=== PATIENT | female | born 1975 | race Caucasian/White ===

== ENCOUNTER 2016-09-10 15:38 | Emergency (ER) | payer BC ==
[~2016-09-10] VITALS: Ht 167.6 cm; Wt 98.0 kg
[~2016-09-10 15:38] MED LIST: EFFEXOR75 MG PO; NORCO1 TA1 PO
[2016-09-10] MEDS ORDERED: VENLAFAXINE HCL75 M1 PO (15:49)
[2016-09-10] MEDS ORDERED: TRAMADOL HYDROC50 MG PO (16:56)
[2016-09-10] MEDS ORDERED: EC-NAPROSYN500 MG PO (16:56)
[2016-09-10 17:00] VITALS: BP 149/74
== END 2016-09-10 17:00 | disposition home or self-care (01) | DRG 159 ==
LOC: ED 15:38
DX: M26.601 Right temporomandibular joint disorder, unspecified (principal); F17.200 Nicotine dependence, unspecified, uncomplicated; H92.01 Otalgia, right ear

== ENCOUNTER 2017-11-02 18:18 | Emergency (ER) | payer BC ==
[~2017-11-02] VITALS: Ht 167.6 cm; Wt 122.0 kg
[~2017-11-02 18:18] MED LIST changes: +EC-NAPROSYN500 MG PO; +TRAMADOL HYDROC50 MG PO; +VENLAFAXINE HCL75 M1 PO
[2017-11-02 19:20] VITALS: BP 175/77
== END 2017-11-02 19:20 | disposition home or self-care (01) | DRG 563 ==
LOC: ED 18:18
DX: S96.912A Strain of unspecified muscle and tendon at ankle and foot level, left foot, initial encounter (principal); F17.210 Nicotine dependence, cigarettes, uncomplicated; F41.9 Anxiety disorder, unspecified; X50.3XXA Overexertion from repetitive movements, initial encounter

== ENCOUNTER 2022-03-04 14:52 | Emergency (ER) | payer BC ==
[~2022-03-04] VITALS: Ht 167.6 cm; Wt 136.0 kg
[2022-03-04 15:12] VITALS: BP 151/87
[2022-03-04 15:16] VITALS: BP 152/83
[2022-03-04] MEDS ORDERED: PREDNISONE50 MG PO (17:41)
[2022-03-04] MEDS ORDERED: ALL DAY10 MG PO (17:41)
[2022-03-04] MEDS ORDERED: EPIPEN 2-P0.3 MG/0.3 IM (17:42)
[2022-03-04 19:26] VITALS: BP 152/83
== END 2022-03-04 19:37 | disposition home or self-care (01) | DRG 916 ==
LOC: ED 14:52
DX: T78.40XA Allergy, unspecified, initial encounter (principal); F41.9 Anxiety disorder, unspecified; F17.200 Nicotine dependence, unspecified, uncomplicated; X58.XXXA Exposure to other specified factors, initial encounter

== ENCOUNTER 2022-05-07 19:11 | Emergency (ER) | payer BC ==
[~2022-05-07] VITALS: Ht 167.6 cm; Wt 125.0 kg
[~2022-05-07 19:11] MED LIST changes: +ALL DAY10 MG PO; +EPIPEN 2-P0.3 MG/0.3 IM; +PREDNISONE50 MG PO
[2022-05-07 20:16] VITALS: BP 141/83
[2022-05-07 21:04] LABS: URINE BILIRUBIN - DIPSTICK NEGATIVE (NEGATIVE); URINE BLOOD DIPSTICK TRACE-INTACT (NEGATIVE); URINE COLOR YELLOW; URINE GLUCOSE - DIPSTICK 100 mg/dL (NEGATIVE); URINE KETONE NEGATIVE (NEGATIVE); URINE LEUK ESTERASE NEGATIVE (NEGATIVE); URINE PH 5.5 (4.5-8.0); URINE PROTEIN - DIPSTICK TRACE mg/dL (NEG-TRACE); URINE SPECIFIC GRAVITY >=1.030
[2022-05-07 21:05] LABS: HEMATOCRIT 42.4 % (37.0-47.0); IMMATURE GRANULOCYTES 0.1 % (0.0-5.0); NEUT# 6.75 thou/uL (2.00-7.15); RED BLOOD COUNT 4.66 mill/uL (4.20-5.60); RED CELL DISTRI WIDTH 12.3 % (11.5-15.5)
[2022-05-07 21:06] LABS: URINE NITRITE - DIPSTICK POSITIVE (Negative)
[2022-05-07 21:14] LABS: URINE BACTERIA RARE hpf; URINE RBC 0-2 RBC/hpf (0-5); URINE SQUAMOUS EPITHELIAL CELL FEW EPI/hpf (0-FEW); URINE WBC 0-2 WBC/hpf (0-5)
[2022-05-07 21:18] LABS: ALBUMIN 4.1 g/dL (3.2-5.0); ALKALINE PHOSPHATASE 57 u/l (38-126); AMYLASE 52 u/l (30-110); ANION GAP 13 (6-22 (CALC)); BUN 8 mg/dL (7-17); BUN/CREATININE RATIO 11 (12-20 (CALC)); CARBON DIOXIDE 25 mmol/l (22-30); CHLORIDE 102 mmol/l (95-108); CREATININE 0.7 mg/dL (0.5-1.0); GFR FOR AFR.AMER. > 60 ML/MIN (>=60 (CALC)); GFR OTHER RACES > 60 ML/MIN (>=60 (CALC)); LIPASE 47 u/l (23-300); POTASSIUM 3.7 mmol/l (3.5-5.1); SGOT/AST 23 u/l (14-36); SODIUM 136 mmol/l (137-146); TOTAL PROTEIN 7.5 g/dL (6.3-8.2)
[2022-05-07 21:22] LABS: BILIRUBIN, TOTAL 0.6 mg/dL (0.0-1.4)
[2022-05-07] MEDS ORDERED: CIPROFLOXACN500 MG PO (23:37)
[2022-05-07] MEDS ORDERED: METRONIDAZOLE500 MG PO (23:37)
[2022-05-07 23:42] VITALS: BP 141/83
== END 2022-05-07 23:46 | disposition home or self-care (01) | DRG 392 ==
LOC: ED 19:11
PROVIDERS: Emergency Medicine
DX: K57.32 Diverticulitis of large intestine without perforation or abscess without bleeding (principal); F41.9 Anxiety disorder, unspecified

== ENCOUNTER 2023-06-18 08:48 | Emergency (ER) | payer BC ==
[~2023-06-18] VITALS: Ht 167.6 cm; Wt 126.4 kg
[2023-06-18] VITALS (7 sets, daily range): BP systolic 142–172; BP diastolic 90–113
[~2023-06-18 08:48] MED LIST changes: +CIPROFLOXACN500 MG PO; +METRONIDAZOLE500 MG PO
[2023-06-18 10:21] LABS: URINE BILIRUBIN - DIPSTICK Negative (NEGATIVE); URINE BLOOD DIPSTICK Negative (NEGATIVE); URINE GLUCOSE - DIPSTICK Negative (NEGATIVE); URINE KETONE Negative (NEGATIVE); URINE LEUK ESTERASE Negative (NEGATIVE); URINE NITRITE - DIPSTICK Negative (Negative); URINE PH 6.5 (4.5-8.0); URINE PROTEIN - DIPSTICK Negative (NEG-TRACE); URINE UROBILINOGEN - DIPSTICK 0.2 E.U./dL (0.2)
[2023-06-18 10:22] LABS: URINE COLOR Yellow
[2023-06-18] MEDS ORDERED: OMNICEF300 MG PO (10:44)
== END 2023-06-18 10:52 | disposition home or self-care (01) | DRG 153 ==
LOC: ED 08:48
PROVIDERS: Emergency Medicine
DX: H66.91 Otitis media, unspecified, right ear (principal); M54.9 Dorsalgia, unspecified; F41.9 Anxiety disorder, unspecified

== ENCOUNTER 2024-08-06 06:20 | Emergency (ER) | payer BC ==
[~2024-08-06] VITALS: Ht 165.1 cm; Wt 125.0 kg
[2024-08-06] VITALS (13 sets, daily range): BP systolic 121–170; BP diastolic 67–95
[~2024-08-06 06:20] MED LIST changes: +CLINDAMYCIN300 M1 PO; +DOXYCYCLINE HY100 MG PO; +EFFEXOR XR75 MG/CAP PO; +ELIQUIS5 MG PO; +OMNICEF300 MG PO
[2024-08-06 07:20] LABS: BASO% 0.3 % (0-3); EOS% 1.2 % (0-8); HEMOGLOBIN 13.3 g/dl (12.0-16.0); IMMATURE GRANULOCYTES 0.1 % (0.0-5.0); LYMPH% 16.4 % (15-41); MEAN CELL VOLUME 93.1 fL CALC (80.0-100.0); MEAN CORPUSCULAR HGB 29.5 pG CALC (26.0-32.0); MEAN CORPUSCULAR HGB CONC 31.7 g/dL CAL (32.0-36.0); MONO% 9.2 % (2-13); NEUT# 5.32 thou/uL (2.00-7.15); NEUT% 72.8 % (42-76); RED BLOOD COUNT 4.51 mill/uL (4.20-5.60); RED CELL DISTRI WIDTH 12.1 % (11.5-15.5)
[2024-08-06 07:29] LABS: ALKALINE PHOSPHATASE 58 u/l (38-126); ANION GAP 10 (6-22 (CALC)); BUN 6 mg/dL (7-17); BUN/CREATININE RATIO 8 (12-20 (CALC)); CARBON DIOXIDE 30 mmol/l (22-30); CHLORIDE 102 mmol/l (95-108); CREATININE 0.8 mg/dL (0.5-1.0); ESTIMATED GFR 91 ML/MIN (>=90 (CALC)); LIPASE 78 u/l (23-300); POTASSIUM 3.6 mmol/l (3.5-5.1); SGOT/AST 23 u/l (14-36); SODIUM 138 mmol/l (137-146); TOTAL PROTEIN 7.3 g/dL (6.3-8.2)
[2024-08-06 07:30] LABS: URINE BLOOD DIPSTICK Trace-lysed (NEGATIVE); URINE GLUCOSE - DIPSTICK Negative (NEGATIVE); URINE KETONE Negative (NEGATIVE); URINE LEUK ESTERASE Negative (NEGATIVE); URINE NITRITE - DIPSTICK Negative (Negative); URINE PROTEIN - DIPSTICK Negative (NEG-TRACE)
[2024-08-06 07:31] LABS: URINE COLOR Yellow
[2024-08-06 07:31] LABS: BILIRUBIN, TOTAL 0.6 mg/dL (0.02-1.3)
[2024-08-06] MEDS ORDERED: KETOROLAC TROMETHAMINE 30 MG/ML SDV IV ONE (07:35)
[2024-08-06] MEDS ORDERED: SODIUM CHLORIDE 0.9% 1,000 ML IV ONE (07:35)
[2024-08-06] MEDS ORDERED: ONDANSETRON HCl 4 MG/2 ML SDV IV ONE (07:40)
[2024-08-06] MEDS ORDERED: MORPHINE SULFATE 4 MG/ML VIAL IV ONE (07:40)
[2024-08-06] MEDS ORDERED: TRAMADOL HYDROC50 M1 PO (09:48)
[2024-08-06] MEDS ORDERED: ZOFRAN4 MG/TAB PO (09:48)
[2024-08-06] MEDS ORDERED: METRONIDAZOLE500 MG PO (09:48)
[2024-08-06] MEDS ORDERED: CIPROFLOXACN500 MG PO (09:48)
== END 2024-08-06 11:08 | disposition home or self-care (01) | DRG 392 ==
LOC: ED 06:20
PROVIDERS: Internal Medicine
DX: K57.32 Diverticulitis of large intestine without perforation or abscess without bleeding (principal)
CPT/HCPCS: J1836; J2405; Q9967